=== PATIENT | male | born 1980 ===

== ENCOUNTER 2019-11-16 13:52 | Emergency (ER) | payer MEDICAID ==
[~2019-11-16] VITALS: Ht 185.4 cm; Wt 78.0 kg
[2019-11-16 13:57] VITALS: BP 139/76
--- NOTE | 2019-11-16 14:08 | NUR ---
THIS IS A 38 YO M W/ C/O LOW BACK SPASM X2 HOURS. PT ALSO REPORTS MISSING APT FOR METHADONE RX YESTERDAY. PT IS TACHYCARDIC. OTHER VS WDL. RESTING ON GURNEY W/ CALL LIGHT IN REACH. AT BEDSIDE FOR EVAL.
[2019-11-16] MEDS ORDERED: GABAPENTIN 300 MG CAPSULE ONE (14:24)
--- NOTE | 2019-11-16 14:27 | NUR ---
PT REPORTS HE GETS METHADONE RX FROM [facility].
[2019-11-16] MEDS ORDERED: GABAPENTIN 300 MG CAPSULE PO ONE (14:30)
== END 2019-11-16 14:58 | disposition home or self-care (01) ==
LOC: ED 14:32
DX: F11.23 Opioid dependence with withdrawal (principal); M54.5 Low back pain; Z87.891 Personal history of nicotine dependence
CPT/HCPCS: 99283